=== PATIENT | male | born 1970 | race African-American/Black ===

== ENCOUNTER 2024-03-14 16:24 | Emergency (ER) | payer OTHER ==
[2024-03-14] MEDS ORDERED: Ketorolac Tromethamine 30 MG (1 mL) VIAL ONE (17:26)
== END 2024-03-14 17:42 | disposition home or self-care (01) ==
LOC: CSHERS 16:24
DX: K08.89 Other specified disorders of teeth and supporting structures (principal); I10 Essential (primary) hypertension
CPT/HCPCS: 96372; J1885